=== PATIENT | male | born 1950 | race Caucasian/White ===

== ENCOUNTER 2017-06-22 18:37 | Inpatient (IN) | payer OTHER ==
[~2017-06-22] VITALS: Ht 167.6 cm; Wt 110.3 kg
[2017-06-22 19:23] LABS: HEMATOCRIT 40.8 % (38.0-50.0); MCH 31.8 PG (29.0-34.0); MCHC 34.6 G/DL (30.0-36.0); MCV 92.1 FL (86-99); MEAN PLAT.VOLUME 10.1 uM^3 (9.0-12.4); PLATELET COUNT 84 K/uL (156-360); RBC DIS.WIDTH-CV 12.9 % (11.8-14.6); RBC DIS.WIDTH-SD 43.6 % (39-53); RED BLOOD COUNT 4.43 M/uL (4.00-5.50); WHITE BLOOD COUNT 21.2 K/uL (4.1-10.2)
[2017-06-22 19:35] LABS: GLUCOSE 199 mg/dL (70-99)
[2017-06-22 19:36] LABS: ANION GAP 4 MEQ/L (2-14)
[2017-06-22 19:37] LABS: TOTAL BILIRUBIN 1.8 mg/dL (0.0-1.0)
[2017-06-22 19:39] LABS: ALKALINE PHOSPHATASE 67 IU/L (3-129); GFR ESTIMATE (CALCULATED) > 59 mL/min/
[2017-06-22 19:40] LABS: UREA NITROGEN (BUN) 20 mg/dL (9-23)
[2017-06-22 19:45] LABS: TROP-I INTERPRETATION NEGATIVE; TROPONIN-I < 0.01 ng/mL (0.0-0.30)
[2017-06-22 19:48] LABS: ADD MIUA? YES; BILIRUBIN NEGATIVE; BLOOD LARGE; COLOR YELLOW ((YELLOW)); GLUCOSE (STRIP) >=500; KETONES NEGATIVE; LEUKOCYTES NEGATIVE; NITRITE NEGATIVE; PROTEIN (STRIP) 30; UROBILINOGEN 0.2 MG/DL (0.2-1.0)
[2017-06-22 19:55] LABS: BACTERIA RARE /HPF; EPITHELIAL CELLS NONE SEEN /HPF; MUCUS NONE SEEN /LPF; UCUL ADDED? NO; WHITE BLOOD CELLS 0-5 /HPF (0-5)
[2017-06-22] MEDS ORDERED: PROVENTIL,2.5 MG/3 M IH (21:05)
[2017-06-22] MEDS ORDERED: PROAIR HFA8.5 GM IH (21:05)
[2017-06-22] MEDS ORDERED: NOVOLOG PE100 UNITS/ SC (21:06)
[2017-06-22] MEDS ORDERED: SYMBICORT60 INHALAT IH (21:06)
[2017-06-22] MEDS ORDERED: VITAMIN D31000 UNIT PO (21:06)
[2017-06-22] MEDS ORDERED: FLUOXETINE HCL20 MG PO (21:06)
[2017-06-22] MEDS ORDERED: HYDROCHLOROTHIA25 MG PO (21:06)
[2017-06-22] MEDS ORDERED: LISINOPRIL40 MG PO (21:07)
[2017-06-22] MEDS ORDERED: LOPRESSOR25 MG PO (21:07)
[2017-06-22] MEDS ORDERED: LANTUS 3 M100 UNITS1 SC (21:07)
[2017-06-22] MEDS ORDERED: GUAIFENESIN200 M2 PO (21:08)
[2017-06-22] MEDS ORDERED: FLOMAX0.4 MG PO (21:08)
[2017-06-22] MEDS ORDERED: PRAVACHOL20 MG PO (21:08)
[2017-06-22] MEDS ORDERED: NYSTATIN15 GM TP (21:08)
[2017-06-22] MEDS ORDERED: SPIRIVA1 INHALATI IH (21:08)
[2017-06-22] MEDS ORDERED: METFORMIN HCL1000 MG PO (21:08)
[2017-06-22] MEDS ORDERED: FLUZONE QU IM (21:09)
[2017-06-22 21:12] LABS: BASE EXCESS 0.5 mEq/L (-3 to +3); BICARBONATE 24.6 mEq/L (22-26); CARBOXY HGB 3.7 % (0-5); PCO2 37 mm Hg (35-45); PO2 73 mm Hg (80-100); pH 7.43 (7.35-7.45)
[2017-06-22 21:13] LABS: COMMENTS - BLOOD GASES A+C+; DEVICE NC; SITE LR; TOTAL RESP RATE 23 resp/min
[2017-06-22 21:53] LABS: CHLORIDE 101 mEq/L (99-109); POTASSIUM 3.7 mEq/L (3.7-5.4); SODIUM 134 mEq/L (136-147)
[2017-06-22 21:54] LABS: GLUCOSE 184 mg/dL (70-99)
[2017-06-22 21:56] LABS: ANION GAP 13 MEQ/L (2-14)
[2017-06-22 21:58] LABS: GFR ESTIMATE (CALCULATED) > 59 mL/min/
[2017-06-22 21:59] LABS: UREA NITROGEN (BUN) 19 mg/dL (9-23)
[2017-06-22 22:18] VITALS: BP 110/42
[2017-06-22 22:30] VITALS: BP 142/60
[2017-06-22 22:45] VITALS: BP 158/70
[2017-06-22 23:00] VITALS: BP 134/75
[2017-06-22 23:39] LABS: METH RESISTANT S AUREUS PCR NEGATIVE (NEGATIVE)
[2017-06-22 23:56] LABS: PROBE CHECK PASS; SPECIMEN PROCESSING CONTROL PASS
[2017-06-23] VITALS (15 sets, daily range): BP systolic 130–169; BP diastolic 65–91
[2017-06-23 01:19] LABS: MAGNESIUM 1.4 mg/dL (1.3-2.7)
[2017-06-23 06:44] LABS: ANION GAP 8 MEQ/L (2-14); CHLORIDE 100 MEQ/L (99-109); GFR ESTIMATE (CALCULATED) > 59 mL/min/; GLUCOSE 221 mg/dL (70-99); SAMPLE HEMOLYSIS CHECK 0; SAMPLE ICTERIC CHECK 0; SAMPLE LIPEMIA CHECK 0; SODIUM 134 MEQ/L (136-147); UREA NITROGEN (BUN) 21 mg/dL (9-23)
[2017-06-23 06:55] LABS: POTASSIUM 4.5 MEQ/L (3.7-5.4)
[2017-06-23 08:30] LABS: POINT-OF-CARE METER ID UU13113803
[2017-06-23 10:17] LABS: EOSINOPHIL (%) 0 % (0-5); IMMATURE GRANULOCYTE (%) 0.7 % (0.0-0.7); IMMATURE GRANULOCYTE COUNT 0.1 K/uL; INSTRUMENT ABS NEUTROPHIL CT 14.2 K/uL; LYMPHOCYTE COUNT 0.9 K/uL (1.0-2.8); MCH 32.4 PG (29.0-34.0); MCHC 33.9 G/DL (30.0-36.0); MCV 95.5 FL (86-99); MEAN PLAT.VOLUME 11.2 uM^3 (9.0-12.4); MONOCYTE (%) 5.7 % (3-12); MONOCYTE COUNT 0.9 K/uL (0-0.8); NEUTROPHIL (%) 87.6 % (45-76); NEUTROPHIL COUNT 14.2 K/uL (1.8-6.4); PLATELET COUNT 76 K/uL (156-360); RBC DIS.WIDTH-CV 13.4 % (11.8-14.6); RBC DIS.WIDTH-SD 47.6 % (39-53); RED BLOOD COUNT 3.77 M/uL (4.00-5.50); WHITE BLOOD COUNT 16.2 K/uL (4.1-10.2)
[2017-06-23 10:34] LABS: MAGNESIUM 1.6 mg/dl (1.3-2.7)
[2017-06-23 12:03] LABS: POINT-OF-CARE METER ID UU14162636
[2017-06-24 04:24] VITALS: BP 156/75
[2017-06-24 06:52] LABS: POINT-OF-CARE METER ID UU14188577
[2017-06-24 07:51] VITALS: BP 148/91
[2017-06-24 09:37] LABS: MCH 31.7 PG (29.0-34.0); MCHC 33.7 G/DL (30.0-36.0); MCV 94.1 FL (86-99); MEAN PLAT.VOLUME 10.2 uM^3 (9.0-12.4); PLATELET COUNT 72 K/uL (156-360); RBC DIS.WIDTH-CV 13.2 % (11.8-14.6); RBC DIS.WIDTH-SD 45.3 % (39-53); RED BLOOD COUNT 3.72 M/uL (4.00-5.50); WHITE BLOOD COUNT 10.8 K/uL (4.1-10.2)
[2017-06-24 10:05] LABS: ALKALINE PHOSPHATASE 49 IU/L (3-129); ANION GAP 6 MEQ/L (2-14); CHLORIDE 100 MEQ/L (99-109); GFR ESTIMATE (CALCULATED) > 59 mL/min/; GLUCOSE 171 mg/dL (70-99); POTASSIUM 4.4 MEQ/L (3.7-5.4); SAMPLE HEMOLYSIS CHECK 0; SAMPLE ICTERIC CHECK 0; SAMPLE LIPEMIA CHECK 0; SODIUM 133 MEQ/L (136-147); TOTAL BILIRUBIN 1.2 MG/DL (0.0-1.0); UREA NITROGEN (BUN) 14 mg/dL (9-23)
[2017-06-24 11:03] LABS: POINT-OF-CARE METER ID UU14188577
[2017-06-24 11:34] VITALS: BP 155/95
[2017-06-24 14:17] LABS: Estimated Average Glucose 214 mg/dL (70-123); HEMOGLOBIN A1c (GLYCOHEMOGLOB) 9.1 % HGB (Below 5.7)
[2017-06-24 15:21] VITALS: BP 184/86
[2017-06-24 15:55] LABS: POINT-OF-CARE METER ID UU14188577
[2017-06-24 18:31] LABS: POTASSIUM 4.3 mEq/L (3.7-5.4)
[2017-06-24 18:32] LABS: CHLORIDE 100 mEq/L (99-109); SODIUM 135 mEq/L (136-147)
[2017-06-24 19:56] VITALS: BP 167/79
[2017-06-25 00:07] VITALS: BP 176/84
[2017-06-25 03:40] VITALS: BP 195/92
[2017-06-25 06:32] LABS: POINT-OF-CARE METER ID UU14117124
[2017-06-25 07:02] LABS: EOSINOPHIL (%) 0.7 % (0-5); EOSINOPHIL COUNT 0.1 K/uL (0-0.3); HEMATOCRIT 34.7 % (38.0-50.0); IMMATURE GRANULOCYTE (%) 0.6 % (0.0-0.7); IMMATURE GRANULOCYTE COUNT 0.1 K/uL; LYMPHOCYTE COUNT 1.3 K/uL (1.0-2.8); MCH 32.7 PG (29.0-34.0); MCHC 35.2 G/DL (30.0-36.0); MEAN PLAT.VOLUME 10.6 uM^3 (9.0-12.4); MONOCYTE (%) 10.7 % (3-12); MONOCYTE COUNT 0.9 K/uL (0-0.8); PLATELET COUNT 87 K/uL (156-360); RBC DIS.WIDTH-CV 13.2 % (11.8-14.6); RBC DIS.WIDTH-SD 44.7 % (39-53); RED BLOOD COUNT 3.73 M/uL (4.00-5.50); WHITE BLOOD COUNT 8.4 K/uL (4.1-10.2)
[2017-06-25 07:23] LABS: ANION GAP 9 MEQ/L (2-14); CHLORIDE 103 MEQ/L (99-109); GFR ESTIMATE (CALCULATED) > 59 mL/min/; POTASSIUM 3.8 MEQ/L (3.7-5.4); SAMPLE HEMOLYSIS CHECK 0; SAMPLE ICTERIC CHECK 0; SAMPLE LIPEMIA CHECK 0; SODIUM 138 MEQ/L (136-147); UREA NITROGEN (BUN) 15 mg/dL (9-23)
[2017-06-25 07:28] LABS: GLUCOSE 101 mg/dL (70-99)
[2017-06-25 07:57] VITALS: BP 202/96
[2017-06-25 10:33] VITALS: BP 162/88
[2017-06-25 16:24] VITALS: BP 148/80
[2017-06-25 23:33] VITALS: BP 170/88
[2017-06-26 03:41] VITALS: BP 162/88; BP 182/90
[2017-06-26 06:44] LABS: HEMATOCRIT 34.4 % (38.0-50.0); MCH 31.5 PG (29.0-34.0); MCV 92.5 FL (86-99); MEAN PLAT.VOLUME 9.9 uM^3 (9.0-12.4); PLATELET COUNT 91 K/uL (156-360); RBC DIS.WIDTH-CV 13.1 % (11.8-14.6); RBC DIS.WIDTH-SD 44.5 % (39-53); RED BLOOD COUNT 3.72 M/uL (4.00-5.50); WHITE BLOOD COUNT 7.6 K/uL (4.1-10.2)
[2017-06-26 07:11] LABS: ANION GAP 10 MEQ/L (2-14); CHLORIDE 104 MEQ/L (99-109); GFR ESTIMATE (CALCULATED) > 59 mL/min/; GLUCOSE 72 mg/dL (70-99); MAGNESIUM 1.7 mg/dl (1.3-2.7); POTASSIUM 3.9 MEQ/L (3.7-5.4); SAMPLE HEMOLYSIS CHECK 0; SAMPLE ICTERIC CHECK 0; SAMPLE LIPEMIA CHECK 0; SODIUM 140 MEQ/L (136-147); UREA NITROGEN (BUN) 18 mg/dL (9-23)
[2017-06-26 07:28] LABS: POINT-OF-CARE METER ID UU14188577
[2017-06-26 08:12] VITALS: BP 164/84
[2017-06-26] MEDS ORDERED: CEFTIN500 MG PO (11:21)
[2017-06-26] MEDS ORDERED: APRESOLINE10 MG PO (11:24)
[2017-06-26] MEDS ORDERED: NICOTINE PATCH1 EAC2 TD (11:24)
[2017-06-26] MEDS ORDERED: ULTRAM50 MG PO (11:24)
[2017-06-26] MEDS ORDERED: FOLIC ACID1 MG PO (11:24)
[2017-06-26] MEDS ORDERED: Thiamine,Vitamin B1 PO (11:24)
[2017-06-26] MEDS ORDERED: ROPINIROLE HC0.25 MG PO (11:24)
== END 2017-06-26 12:48 | disposition home or self-care (01) | DRG 871 ==
LOC: EME 18:37 → 3EAST 21:28 → 4WEST 21:28 → EDOF 21:28 → ENRESERV 21:30 → 4WEST 22:10 → ENRESERV 06-23 11:28 → CANRESERV 06-23 11:39 → ENRESERV 06-23 11:40 → 3EAST 06-23 13:17
PROVIDERS: Emergency Medicine; Hospitalist; Internal Medicine; Internal Medicine Critical Care Medicine; Physician Assistant
DX: A41.9 Sepsis, unspecified organism (principal); R65.21 Severe sepsis with septic shock; L03.116 Cellulitis of left lower limb; E87.1 Hypo-osmolality and hyponatremia; E87.2 Acidosis; J44.1 Chronic obstructive pulmonary disease with (acute) exacerbation; F10.20 Alcohol dependence, uncomplicated; M79.89 Other specified soft tissue disorders; E87.6 Hypokalemia; I87.8 Other specified disorders of veins; G47.33 Obstructive sleep apnea (adult) (pediatric); F17.200 Nicotine dependence, unspecified, uncomplicated; Z79.4 Long term (current) use of insulin; E11.9 Type 2 diabetes mellitus without complications
CPT/HCPCS: 36600; 71020; 71260; 74177; 80048; 80048 91; 80053; 81003; 82803; 82948; 83036; 83605; 83735; 83880; 84295; 84484; 85025; 85027; 85379; 87040; 87070; 87205; 87641; 93005; 93971; 94640; 94640 76; 94660; 94799; 99202; 99281; 99285; J0696; J1650; J1885; J1956; J2270; J2405; J2543; J3260; J3370; J3411; J3475; J7030; J7050; J7120